=== PATIENT | female | born 1970 | race Caucasian/White ===

== ENCOUNTER 2018-04-25 09:48 | Observation (INO) ==
[2018-04-25] MEDS ORDERED: 0.9 % Sodium Chloride 1,000 ML IVC ONE (10:18)
[2018-04-25] MEDS ORDERED: *HR* FentaNYL (PF) 100 MCG/2 ML VIAL IVP ONE (10:18)
[2018-04-25] MEDS ORDERED: *HR* Promethazine 25 MG/ML VIAL IVP ONE (10:18)
--- NOTE | 2018-04-25 10:29 | Emergency Department Note ---
Disposition Clinical Impression: Abdominal pain Qualifiers: Abdominal location: left upper quadrant Qualified Code(s): R10.12 - Left upper quadrant pain Nausea and vomiting Qualifiers: Vomiting type: unspecified Vomiting Intractability: intractable Qualified Code(s): R11.2 - Nausea with vomiting, unspecified Disposition: Admitted As Inpatient Condition: Fair Abdominal Pain HPI - General Stated Complaint: n.v.d Time Seen by Provider: 04/25/18 09:51 Source: patient, family Mode of arrival: private vehicle Limitations: no limitations Nursing Notes Reviewed: Yes Vital Signs Reviewed: Yes - History of Present Illness Pt Subjective Complaint: abdominal pain Onset (ago): day(s) Consistency: constant Location: LUQ, epigastric Pain Severity: severe Pain Scale: 10 Quality: stabbing, sharp Radiation: none Migration to: no migration Improves with: nothing Worsens with: vomiting Context: history of similar episodes Associated symptoms: Reports: nausea, vomiting. Denies: diarrhea, fever, chills, constipation, dysuria, hematemesis, hematochezia, melena, hematuria, anorexia, syncope Treatments prior to arrival: none - Related Data LMP (females 10-50): unknown Home Medications Medication Instructions Recorded Confirmed Losartan Potassium 50 mg PO DAILY 04/25/18 04/25/18 Omeprazole [PriLOSEC] 40 mg PO DAILY 04/25/18 04/25/18 Ondansetron [Zofran] 8 mg PO Q8H PRN 04/25/18 04/25/18 Sucralfate [Carafate] 1 gm PO BID 04/25/18 04/25/18 Allergies Allergy/AdvReac Type Severity Reaction Status Date / Time NSAIDS (Non-Steroidal AdvReac Nausea Verified 04/23/18 19:44 Anti-Inflamma prednisone AdvReac See Verified 04/23/18 19:44 Comments All systems ED: reviewed and negative except as stated. Review of Systems: As Per HPI Constitutional: Denies: fever, chills, weakness Eyes: Denies: eye pain, eye discharge, vision change ENT ED: Denies: ear pain, throat pain, congestion, dysphagia Cardiovascular: Reports: as per HPI. Denies: chest pain, palpitations, dyspnea on exertion, orthopnea, syncope Respiratory: Denies: cough, dyspnea, wheezes Gastrointestinal: Reports: as per HPI, abdominal pain, nausea, vomiting. Denies: diarrhea, constipation, hematemesis, melena, hematochezia Genitourinary: Denies: urgency, dysuria, frequency, hematuria, discharge Musculoskeletal: Denies: back pain, neck pain, joint swelling, arthralgia Integumentary: Denies: rash Neurological: Denies: headache, weakness, numbness, paresthesias Hematological/Lymphatic: Denies: easy bleeding, easy bruising, lymphadenopathy Abdominal Pain PMH - Past Medical History Medical history: Reports: hypertension Female Surgical History: Reports: Psychiatric history: Reports: anxiety, depression - Social History Smoking status: Never smoker Alcohol use: Reports: none Drug use: Reports: none Physical Exam - General Limitations: no limitations General appearance: alert, anxious, in distress - Head Head exam: atraumatic, normocephalic, normal inspection - Eye Eye exam: Present: normal appearance. Absent: PERRL, scleral icterus, conjunctival injection, periorbital swelling - ENT ENT exam: mucous membranes moist - Neck Neck exam: Present: normal inspection, full ROM, trachea midline. Absent: tenderness, meningismus, lymphadenopathy - Chest Chest inspection: Present: normal inspection, symmetric chest wall rise - Respiratory Respiratory exam: Present: normal lung sounds bilaterally. Absent: respiratory distress, wheezes, stridor, accessory muscle use - Cardiovascular Cardiovascular exam: Present: regular rate, normal rhythm, normal heart sounds - Abdominal Exam Abdominal exam: Present: soft, tenderness, normal bowel sounds. Absent: distention, guarding, rebound, rigidity, diminished bowel sounds, hyperactive bowel sounds, mass, pulsatile mass Abdominal tenderness: Present: epigastrium, moderate - Extremities Exam Extremities exam: Present: normal inspection, full ROM, normal capillary refill. Absent: tenderness - Neurological Exam Neurological exam: Present: alert, oriented X3, CN II-XII intact, reflexes normal - Psychiatric Psychiatric exam: Present: normal affect, anxious - Skin Skin exam: Present: warm, dry, intact, normal color Course Course Narrative: Patient returns to the ED today for eval of continued LUQ pain, nausea and vomiting. She was seen here two days ago and had labs, EKG and CT done. All were normal except for leukocytosis. She was feeling better and was able to go home. Once home however, the pain and nausea returned. She was unable to keep any meds or fluids down, so her family brought her back this AM. She denies anything new or different. She has actually had these issues since January and has seen her PCP for them several times. She has been taking Carafate, prevecid and zofran with sporadic relief. She has not had an EGD but states that she was diagnosed with an ulcer. She is not sure of the location of the ulcer. She denies hx of melena or other bowel issues, however she did have one isolated episode of watery diarrhea on the just [employer]. On exam patient initially was prone on the bed with knees drawn up. She was sobbing and holding her upper abdomen. She complained of a burning pain and nausea. She responded well to pain and nausea meds and was able to give a full hx. She was cooperative with exam. She has tenderness in the LUQ predominantly, and some milder tenderness in the epigastrium. Normal bowel sounds, no mass, no guarding. No peritoneal signs. Labs ordered. Labs are essentially normal. WBC count improved. EKG normal. - Reevaluation(s) Reevaluation #1: pain is improved. Still nauseated. Patient and her family are concerned that if she goes home they will have to bring her back again - for the third time. Time: 12:04 Vital Signs Temperature 97.6 F 04/25/18 09:54 Pulse Rate 83 04/25/18 09:54 Respiratory Rate 20 04/25/18 09:54 Blood Pressure 118/55 04/25/18 09:54 O2 Sat by Pulse Oximetry 100 04/25/18 09:54 Temperature 97.6 F 04/25/18 09:54 Pulse Rate 83 04/25/18 09:54 Respiratory Rate 20 04/25/18 09:54 Blood Pressure 118/55 04/25/18 09:54 O2 Sat by Pulse Oximetry 100 04/25/18 09:54 Oxygen Delivery Oxygen Delivery Room Air Abdominal Pain - Medical Records Medical records reviewed: Yes I reviewed the patient's medical records. - Lab Data Lab results reviewed: Yes I reviewed the patient's lab results. Lab results narrative: Laboratory Last Values WBC 12.1 K/mcL (4.3-11.1) H 04/25/18 10:30 RBC 4.99 M/mcL (3.82-4.97) H 04/25/18 10:30 Hgb 15.2 g/dL (11.5-15.4) 04/25/18 10:30 Hct 44.1 % (35.3-44.9) 04/25/18 10:30 MCV 88.4 fL (83.0-100.0) 04/25/18 10:30 MCH 30.5 pg (28.0-33.3) 04/25/18 10:30 MCHC 34.5 g/dL (31.6-35.5) 04/25/18 10:30 RDW 12.0 % (11.5-14.5) 04/25/18 10:30 Plt Count 228 K/mcL (140-400) 04/25/18 10:30 MPV 10.8 fL (9.4-12.4) 04/25/18 10:30 Immature Gran % 0.3 % (0-4) 04/25/18 10:30 Seg Neutrophils % 79.5 % 04/25/18 10:30 Lymphocytes % 16.1 % 04/25/18 10:30 Monocytes % 3.8 % 04/25/18 10:30 Eosinophils % 0.1 % 04/25/18 10:30 Basophils % 0.2 % 04/25/18 10:30 Neutrophils # 9.6 K/mcL (1.6-8.9) H 04/25/18 10:30 Lymphocytes # 2.0 K/mcL (0.6-4.6) 04/25/18 10:30 Monocytes # 0.5 K/mcL (0.0-1.3) 04/25/18 10:30 Eosinophils # 0.0 K/mcL (0.0-0.6) 04/25/18 10:30 Basophils # 0.0 K/mcL (0.0-0.2) 04/25/18 10:30 Sodium 141 mEq/L (136-145) 04/25/18 10:30 Potassium 3.8 mEq/L (3.5-5.1) 04/25/18 10:30 Chloride 104 mEq/L (98-107) 04/25/18 10:30 Carbon Dioxide 20 mEq/L (23-29) L 04/25/18 10:30 BUN 13 mg/dL (6-20) 04/25/18 10:30 Creatinine 0.94 mg/dL (0.60-1.20) 04/25/18 10:30 Est GFR ( Amer) > 60 (> 60) 04/25/18 10:30 Est GFR (Non-Af Amer) > 60 (> 60) 04/25/18 10:30 BUN/Creatinine Ratio 14 (6-26) 04/25/18 10:30 Glucose 99 mg/dL (70-105) 04/25/18 10:30 Calculated Osmolality 292 (280-300) 04/25/18 10:30 Calcium 10.8 mg/dL (8.6-10.3) H 04/25/18 10:30 Total Bilirubin 0.7 mg/dL (0.3-1.0) 04/25/18 10:30 Direct Bilirubin 0.1 mg/dL (0.0-0.2) 04/25/18 10:30 Indirect Bilirubin 0.6 mg/dL (0.0-1.2) 04/25/18 10:30 AST 15 Units/L (13-39) 04/25/18 10:30 ALT 12 Units/L (7-52) 04/25/18 10:30 Alkaline Phosphatase 67 Units/L (34-104) 04/25/18 10:30 Serum Total Protein 8.0 g/dL (6.4-8.9) 04/25/18 10:30 Albumin 4.9 g/dL (3.5-5.7) 04/25/18 10:30 Globulin 3.1 g/dL (2.4-3.5) 04/25/18 10:30 Albumin/Globulin Ratio 1.6 (1.1-2.2) 04/25/18 10:30 Lipase 48 Units/L (11-82) 04/25/18 10:30 Urine Color Yellow (Yellow) 04/25/18 10:18 Urine Clarity Clear (Clear) 04/25/18 10:18 Urine pH 7.0 pH Units (5.0-8.0) 04/25/18 10:18 Ur Specific [place] 1.009 (1.010-1.025) L 04/25/18 10:18 Urine Protein Negative mg/dL (Neg-Trace) 04/25/18 10:18 Urine Glucose (UA) Normal mg/dL (Normal) 04/25/18 10:18 Urine Ketones Negative mg/dL (Negative) 04/25/18 10:18 Urine Blood Small (Negative) H 04/25/18 10:18 Urine Nitrite Negative (Negative) 04/25/18 10:18 Urine Bilirubin Negative (Negative) 04/25/18 10:18 Urine Urobilinogen Normal mg/dL (Normal) 04/25/18 10:18 Ur Leukocyte Esterase Small (Negative) H 04/25/18 10:18 Urine Microscopic RBC 0-3 per hpf (0-3) 04/25/18 10:18 Urine Microscopic WBC 3-5 per hpf (0-3) H 04/25/18 10:18 Ur Squamous Epith Cells Many per lpf (None-Few) H 04/25/18 10:18 Urine Bacteria Few per hpf (None-Few) 04/25/18 10:18 Hyaline Casts None Seen per lpf (None-Few) 04/25/18 10:18 Ur Culture Indicated? NO. (NO) A 04/25/18 10:18 Urine Test Negative (Negative) 04/25/18 10:19 Result diagrams: 04/25/18 10:30 04/25/18 10:30 Lab Results 04/25/18 04/25/18 04/25/18 Range/Units 10:18 10:19 10:30 WBC 12.1 H (4.3-11.1) K/mcL RBC 4.99 H (3.82-4.97) M/mcL Hgb 15.2 (11.5-15.4) g/dL Hct 44.1 (35.3-44.9) % MCV 88.4 (83.0-100.0) fL MCH 30.5 (28.0-33.3) pg MCHC 34.5 (31.6-35.5) g/dL RDW 12.0 (11.5-14.5) % Plt Count 228 (140-400) K/mcL MPV 10.8 (9.4-12.4) fL Immature Gran % 0.3 (0-4) % Seg Neutrophils % 79.5 % Lymphocytes % 16.1 % Monocytes % 3.8 % Eosinophils % 0.1 % Basophils % 0.2 % Neutrophils # 9.6 H (1.6-8.9) K/mcL Lymphocytes # 2.0 (0.6-4.6) K/mcL Monocytes # 0.5 (0.0-1.3) K/mcL Eosinophils # 0.0 (0.0-0.6) K/mcL Basophils # 0.0 (0.0-0.2) K/mcL Sodium (136-145) mEq/L Potassium (3.5-5.1) mEq/L Chloride (98-107) mEq/L Carbon Dioxide (23-29) mEq/L BUN (6-20) mg/dL Creatinine (0.60-1.20) mg/dL Est GFR ( Amer) (> 60) Est GFR (Non-Af Amer) (> 60) BUN/Creatinine Ratio (6-26) Glucose (70-105) mg/dL Calculated Osmolality (280-300) Calcium (8.6-10.3) mg/dL Total Bilirubin (0.3-1.0) mg/dL Direct Bilirubin (0.0-0.2) mg/dL Indirect Bilirubin (0.0-1.2) mg/dL AST (13-39) Units/L ALT (7-52) Units/L Alkaline Phosphatase (34-104) Units/L Serum Total Protein (6.4-8.9) g/dL Albumin (3.5-5.7) g/dL Globulin (2.4-3.5) g/dL Albumin/Globulin Ratio (1.1-2.2) Lipase (11-82) Units/L Urine Color Yellow (Yellow) Urine Clarity Clear (Clear) Urine pH 7.0 (5.0-8.0) pH Units Ur Specific [place] 1.009 L (1.010-1.025) Urine Protein Negative (Neg-Trace) mg/dL Urine Glucose (UA) Normal (Normal) mg/dL Urine Ketones Negative (Negative) mg/dL Urine Blood Small H (Negative) Urine Nitrite Negative (Negative) Urine Bilirubin Negative (Negative) Urine Urobilinogen Normal (Normal) mg/dL Ur Leukocyte Esterase Small H (Negative) Urine Microscopic RBC 0-3 (0-3) per hpf Urine Microscopic WBC 3-5 H (0-3) per hpf Ur Squamous Epith Cells Many H (None-Few) per lpf Urine Bacteria Few (None-Few) per hpf Hyaline Casts None Seen (None-Few) per lpf Ur Culture Indicated? NO. A (NO) Urine Test Negative (Negative) 04/25/18 Range/Units 10:30 WBC (4.3-11.1) K/mcL RBC (3.82-4.97) M/mcL Hgb (11.5-15.4) g/dL Hct (35.3-44.9) % MCV (83.0-100.0) fL MCH (28.0-33.3) pg MCHC (31.6-35.5) g/dL RDW (11.5-14.5) % Plt Count (140-400) K/mcL MPV (9.4-12.4) fL Immature Gran % (0-4) % Seg Neutrophils % % Lymphocytes % % Monocytes % % Eosinophils % % Basophils % % Neutrophils # (1.6-8.9) K/mcL Lymphocytes # (0.6-4.6) K/mcL Monocytes # (0.0-1.3) K/mcL Eosinophils # (0.0-0.6) K/mcL Basophils # (0.0-0.2) K/mcL Sodium 141 (136-145) mEq/L Potassium 3.8 (3.5-5.1) mEq/L Chloride 104 (98-107) mEq/L Carbon Dioxide 20 L (23-29) mEq/L BUN 13 (6-20) mg/dL Creatinine 0.94 (0.60-1.20) mg/dL Est GFR ( Amer) > 60 (> 60) Est GFR (Non-Af Amer) > 60 (> 60) BUN/Creatinine Ratio 14 (6-26) Glucose 99 (70-105) mg/dL Calculated Osmolality 292 (280-300) Calcium 10.8 H (8.6-10.3) mg/dL Total Bilirubin 0.7 (0.3-1.0) mg/dL Direct Bilirubin 0.1 (0.0-0.2) mg/dL Indirect Bilirubin 0.6 (0.0-1.2) mg/dL AST 15 (13-39) Units/L ALT 12 (7-52) Units/L Alkaline Phosphatase 67 (34-104) Units/L Serum Total Protein 8.0 (6.4-8.9) g/dL Albumin 4.9 (3.5-5.7) g/dL Globulin 3.1 (2.4-3.5) g/dL Albumin/Globulin Ratio 1.6 (1.1-2.2) Lipase 48 (11-82) Units/L Urine Color (Yellow) Urine Clarity (Clear) Urine pH (5.0-8.0) pH Units Ur Specific [place] (1.010-1.025) Urine Protein (Neg-Trace) mg/dL Urine Glucose (UA) (Normal) mg/dL Urine Ketones (Negative) mg/dL Urine Blood (Negative) Urine Nitrite (Negative) Urine Bilirubin (Negative) Urine Urobilinogen (Normal) mg/dL Ur Leukocyte Esterase (Negative) Urine Microscopic RBC (0-3) per hpf Urine Microscopic WBC (0-3) per hpf Ur Squamous Epith Cells (None-Few) per lpf Urine Bacteria (None-Few) per hpf Hyaline Casts (None-Few) per lpf Ur Culture Indicated? (NO) Urine Test (Negative) - EKG Data EKG attestation: Yes I reviewed and interpreted this EKG. EKG shows normal: sinus rhythm Rate: normal Rhythm: NSR QRS morphology: poor R-wave progression When compared to previous EKG there are: no significant changes Interpretation: unchanged when compared to prior tracing (date)
[2018-04-25 10:48] LABS: Basophils % 0.2 %; Eosinophils % 0.1 %; Hematocrit 44.1 % (35.3-44.9); Hemoglobin 15.2 g/dL (11.5-15.4); Immature Granulocytes % 0.3 % (0-4); Lymphocytes % 16.1 %; Mean Corpuscular HGB Conc 34.5 g/dL (31.6-35.5); Mean Corpuscular Hemoglobin 30.5 pg (28.0-33.3); Mean Corpuscular Volume 88.4 fL (83.0-100.0); Mean Platelet Volume 10.8 fL (9.4-12.4); Monocytes # 0.5 K/mcL (0.0-1.3); Monocytes % 3.8 %; Neutrophils # 9.6 K/mcL (1.6-8.9); Platelet Count 228 K/mcL (140-400); Red Blood Count 4.99 M/mcL (3.82-4.97); Segmented Neutrophils % 79.5 %
[2018-04-25 11:08] LABS: Alanine Aminotransferase 12 Units/L (7-52); Albumin 4.9 g/dL (3.5-5.7); Albumin/Globulin Ratio 1.6 (1.1-2.2); Alkaline Phosphatase 67 Units/L (34-104); Aspartate Amino Transferase 15 Units/L (13-39); BUN/Creatinine Ratio 14 (6-26); Bilirubin,Direct 0.1 mg/dL (0.0-0.2); Bilirubin,Indirect 0.6 mg/dL (0.0-1.2); Bilirubin,Total 0.7 mg/dL (0.3-1.0); Blood Urea Nitrogen 13 mg/dL (6-20); Calcium 10.8 mg/dL (8.6-10.3); Carbon Dioxide 20 mEq/L (23-29); Chloride 104 mEq/L (98-107); Globulin 3.1 g/dL (2.4-3.5); Glucose 99 mg/dL (70-105); Lipase 48 Units/L (11-82); Osmolality,Calculated 292 (280-300); Potassium 3.8 mEq/L (3.5-5.1); Sodium 141 mEq/L (136-145); eGFR For Non-African Americans > 60 (> 60)
[2018-04-25 11:21] LABS: Bilirubin,Urine Negative (Negative); Blood,Urine Small (Negative); Clarity,Urine Clear (Clear); Color,Urine Yellow (Yellow); Glucose,Urine (UA) Normal (Normal); Ketones,Urine Negative (Negative); Leukocyte Esterase,Urine Small (Negative); Nitrite,Urine Negative (Negative); Protein,Urine Negative (Neg-Trace); Specific Gravity,Urine 1.009 (1.010-1.025); Urobilinogen,Urine Normal (Normal)
[2018-04-25 11:24] LABS: Bacteria,Urine Few per hpf (None-Few); Hyaline Casts,Urine None Seen per lpf (None-Few); RBC,Urine 0-3 per hpf (0-3); Squamous Epithelial Cell,Urine Many per lpf (None-Few)
[2018-04-25] MEDS ORDERED: Promethazine 25 MG in 0.9 % Sodium Chloride 50 ML IVPB ONE (11:59)
[2018-04-25] MEDS ORDERED: Pantoprazole 40 MG VIAL IVP ONE (12:02)
--- NOTE | 2018-04-25 12:11 | Emergency Department Note ---
Disposition Clinical Impression: Abdominal pain, Nausea and vomiting Disposition: Admitted As Inpatient Condition: Fair General Adult HPI - General Chief complaint: ED Nausea/Vomiting/Diarrhea Stated complaint: n.v.d Time Seen by Provider: 04/25/18 09:51 Source: patient, family Mode of arrival: private vehicle Limitations: no limitations Nursing Notes Reviewed: Yes Vital Signs Reviewed: Yes - History of Present Illness Pain Scale: 10 - Related Data Home Medications Medication Instructions Recorded Confirmed Losartan Potassium 50 mg PO DAILY 04/25/18 04/25/18 RX: Omeprazole [PriLOSEC] 40 mg PO DAILY 04/25/18 04/25/18 RX: Ondansetron [Zofran] 8 mg PO Q8H PRN 04/25/18 04/25/18 RX: Sucralfate [Carafate] 1 gm PO BID 04/25/18 04/25/18 Allergies Allergy/AdvReac Type Severity Reaction Status Date / Time NSAIDS (Non-Steroidal AdvReac Nausea Verified 04/23/18 19:44 Anti-Inflamma prednisone AdvReac See Verified 04/23/18 19:44 Comments Constitutional: Denies: fever, chills, weakness Eyes: Denies: eye pain, eye discharge, vision change ENT ED: Denies: ear pain, throat pain, congestion, dysphagia Cardiovascular: Reports: as per HPI. Denies: chest pain, palpitations, dyspnea on exertion, orthopnea, syncope Respiratory: Denies: cough, dyspnea, wheezes Gastrointestinal: Reports: as per HPI, abdominal pain, nausea, vomiting. Denies: diarrhea, constipation, hematemesis, melena, hematochezia Genitourinary: Denies: urgency, dysuria, frequency, hematuria, discharge Musculoskeletal: Denies: back pain, neck pain, joint swelling, arthralgia Integumentary: Denies: rash Neurological: Denies: headache, weakness, numbness, paresthesias Hematological/Lymphatic: Denies: easy bleeding, easy bruising, lymphadenopathy Past Medical History - Past Medical History Medical history: Reports: hypertension Psychiatric history: Reports: anxiety, depression - Social History Smoking Status: Never smoker Smokeless Tobacco Status: No Alcohol use: Reports: none Drug use: Reports: none Physical Exam - General Limitations: no limitations General appearance: alert, anxious, in distress Course Vital Signs Temperature 97.6 F 11/26/18 09:54 Pulse Rate 83 04/25/18 09:54 Respiratory Rate 20 04/25/18 09:54 Blood Pressure 118/55 04/25/18 09:54 O2 Sat by Pulse Oximetry 100 04/25/18 09:54 Temperature 98.9 F 04/25/18 15:12 Pulse Rate 60 04/25/18 15:12 Respiratory Rate 16 04/25/18 15:12 Blood Pressure 138/84 04/25/18 15:12 O2 Sat by Pulse Oximetry 96 04/25/18 15:12 Oxygen Delivery Oxygen Delivery Room Air Medical Decision Making - Lab Data Result diagrams: 04/25/18 10:30 04/25/18 10:30 Lab Results 04/25/18 04/25/18 04/25/18 Range/Units 10:18 10:19 10:30 WBC 12.1 H (4.3-11.1) K/mcL RBC 4.99 H (3.82-4.97) M/mcL Hgb 15.2 (11.5-15.4) g/dL Hct 44.1 (35.3-44.9) % MCV 88.4 (83.0-100.0) fL MCH 30.5 (28.0-33.3) pg MCHC 34.5 (31.6-35.5) g/dL RDW 12.0 (11.5-14.5) % Plt Count 228 (140-400) K/mcL MPV 10.8 (9.4-12.4) fL Immature Gran % 0.3 (0-4) % Seg Neutrophils % 79.5 % Lymphocytes % 16.1 % Monocytes % 3.8 % Eosinophils % 0.1 % Basophils % 0.2 % Neutrophils # 9.6 H (1.6-8.9) K/mcL Lymphocytes # 2.0 (0.6-4.6) K/mcL Monocytes # 0.5 (0.0-1.3) K/mcL Eosinophils # 0.0 (0.0-0.6) K/mcL Basophils # 0.0 (0.0-0.2) K/mcL Sodium (136-145) mEq/L Potassium (3.5-5.1) mEq/L Chloride (98-107) mEq/L Carbon Dioxide (23-29) mEq/L BUN (6-20) mg/dL Creatinine (0.60-1.20) mg/dL Est GFR ( Amer) (> 60) Est GFR (Non-Af Amer) (> 60) BUN/Creatinine Ratio (6-26) Glucose (70-105) mg/dL Calculated Osmolality (280-300) Calcium (8.6-10.3) mg/dL Total Bilirubin (0.3-1.0) mg/dL Direct Bilirubin (0.0-0.2) mg/dL Indirect Bilirubin (0.0-1.2) mg/dL AST (13-39) Units/L ALT (7-52) Units/L Alkaline Phosphatase (34-104) Units/L Serum Total Protein (6.4-8.9) g/dL Albumin (3.5-5.7) g/dL Globulin (2.4-3.5) g/dL Albumin/Globulin Ratio (1.1-2.2) Lipase (11-82) Units/L Urine Color Yellow (Yellow) Urine Clarity Clear (Clear) Urine pH 7.0 (5.0-8.0) pH Units Ur Specific [place] 1.009 L (1.010-1.025) Urine Protein Negative (Neg-Trace) mg/dL Urine Glucose (UA) Normal (Normal) mg/dL Urine Ketones Negative (Negative) mg/dL Urine Blood Small H (Negative) Urine Nitrite Negative (Negative) Urine Bilirubin Negative (Negative) Urine Urobilinogen Normal (Normal) mg/dL Ur Leukocyte Esterase Small H (Negative) Urine Microscopic RBC 0-3 (0-3) per hpf Urine Microscopic WBC 3-5 H (0-3) per hpf Ur Squamous Epith Cells Many H (None-Few) per lpf Urine Bacteria Few (None-Few) per hpf Hyaline Casts None Seen (None-Few) per lpf Ur Culture Indicated? NO. A (NO) Urine Test Negative (Negative) 04/25/18 Range/Units 10:30 WBC (4.3-11.1) K/mcL RBC (3.82-4.97) M/mcL Hgb (11.5-15.4) g/dL Hct (35.3-44.9) % MCV (83.0-100.0) fL MCH (28.0-33.3) pg MCHC (31.6-35.5) g/dL RDW (11.5-14.5) % Plt Count (140-400) K/mcL MPV (9.4-12.4) fL Immature Gran % (0-4) % Seg Neutrophils % % Lymphocytes % % Monocytes % % Eosinophils % % Basophils % % Neutrophils # (1.6-8.9) K/mcL Lymphocytes # (0.6-4.6) K/mcL Monocytes # (0.0-1.3) K/mcL Eosinophils # (0.0-0.6) K/mcL Basophils # (0.0-0.2) K/mcL Sodium 141 (136-145) mEq/L Potassium 3.8 (3.5-5.1) mEq/L Chloride 104 (98-107) mEq/L Carbon Dioxide 20 L (23-29) mEq/L BUN 13 (6-20) mg/dL Creatinine 0.94 (0.60-1.20) mg/dL Est GFR ( Amer) > 60 (> 60) Est GFR (Non-Af Amer) > 60 (> 60) BUN/Creatinine Ratio 14 (6-26) Glucose 99 (70-105) mg/dL Calculated Osmolality 292 (280-300) Calcium 10.8 H (8.6-10.3) mg/dL Total Bilirubin 0.7 (0.3-1.0) mg/dL Direct Bilirubin 0.1 (0.0-0.2) mg/dL Indirect Bilirubin 0.6 (0.0-1.2) mg/dL AST 15 (13-39) Units/L ALT 12 (7-52) Units/L Alkaline Phosphatase 67 (34-104) Units/L Serum Total Protein 8.0 (6.4-8.9) g/dL Albumin 4.9 (3.5-5.7) g/dL Globulin 3.1 (2.4-3.5) g/dL Albumin/Globulin Ratio 1.6 (1.1-2.2) Lipase 48 (11-82) Units/L Urine Color (Yellow) Urine Clarity (Clear) Urine pH (5.0-8.0) pH Units Ur Specific [place] (1.010-1.025) Urine Protein (Neg-Trace) mg/dL Urine Glucose (UA) (Normal) mg/dL Urine Ketones (Negative) mg/dL Urine Blood (Negative) Urine Nitrite (Negative) Urine Bilirubin (Negative) Urine Urobilinogen (Normal) mg/dL Ur Leukocyte Esterase (Negative) Urine Microscopic RBC (0-3) per hpf Urine Microscopic WBC (0-3) per hpf Ur Squamous Epith Cells (None-Few) per lpf Urine Bacteria (None-Few) per hpf Hyaline Casts (None-Few) per lpf Ur Culture Indicated? (NO) Urine Test (Negative) Attestation Statement - Attestation Attestation: This documentation is done with the assistance of Dragon dictation. Despite efforts made to ensure accuracy, there may be inaccuracies in field services analyst or spelling and typographical errors. I have personally performed a face to face evaluation on this patient. I have reviewed and agree with the care plan. History and Exam by me shows: Patient seen and evaluated by Ellen Ibrahim. Patient's had nausea and vomiting and diarrhea is unable to keep anything down was seen yesterday had CAT scan and lab workup which was negative. She went home and continued to vomit so parents today wanting her admitted seems a this could be ulcer pain she has looks pain- free now but still has nausea. Parents would like her admitted to the hospital. We have talked about possibly getting her follow up with GI as outpatient and they will think that will work so we will talk to hospice about her not vomiting now. We will speak to hospitalist and try to admit, if they will not, we will talk with GI.
[2018-04-25] MEDS ORDERED: Naloxone 0.4 MG/ML INJ IVP PRN (14:00)
[2018-04-25] MEDS ORDERED: Ondansetron ODT 4 MG TAB.RAPDIS SL PRN (14:00)
[2018-04-25] MEDS ORDERED: Ondansetron 4 MG/2 ML VIAL IVP PRN (14:00)
--- NOTE | 2018-04-25 15:33 | Internal Med History&Physical ---
Date of Encounter: 04/25/18 Time of Encounter: 15:29 Internal Medicine - H&P: HPI Chief complaint: N/V Admitted From: Emergency Dept Plans for Post Hospital Care: Home History of present illness: Ms. Arias is a 48 year old female past medical history of hypertension hypothyroid H pylori-according to the patient she has been experiencing nausea and vomiting for the past 5 days has not been able to eat or drink. Denies any fevers or chills. Denies any diarrhea or loose stool. Denies any hematemesis hematochezia and melena. Also has left upper quadrant pain which is constant pain is worse when she eats. She was seen in January by primary care provider was tested for H pylori and was treated with antibiotics and placed on Prilosec and Carafate. Patient denies any history of EGD or colonoscopy in the past. She does admit to a 15 pound weight loss over the past 6 months due to poor appetite. He presented to [facility] ED with the above complaints she was treated yesterday and was sent home however symptoms did not improve. Lab work did show slightly elevated white count [address] of abdomen performed yesterday with no acute process. GI has been consulted. Currently she is hemodynamically stable at this time does not appear to be in any distress Past Med Surg Social Fam HX - Past Medical History Medical history: hypertension Additional medical history: pancreatitis Psychiatric history: anxiety, depression - Social History Smoking Status: Never smoker Smokeless Tobacco Status: No Alcohol use: none Drug use: none - Family History Mother Living Status: Still Living Hx Family Cardiac Disorders: Yes (Hypertension) Hx Family Endocrine Disorder: Yes (Diabetes) Father Living Status: Still Living Hx Family Cardiac Disorders: Yes (Hypertension) Internal Medicine - H&P: Meds Losartan Potassium 50 mg PO DAILY 04/25/18 [History] Omeprazole [PriLOSEC] 40 mg PO DAILY 04/25/18 [History] Ondansetron [Zofran] 8 mg PO Q8H PRN 04/25/18 [History] Sucralfate [Carafate] 1 gm PO BID 04/25/18 [History] Allergy/AdvReac Type Severity Reaction Status Date / Time NSAIDS (Non-Steroidal AdvReac Nausea Verified 04/23/18 19:44 Anti-Inflamma prednisone AdvReac See Verified 04/23/18 19:44 Comments All Systems PM: A 10-system review of systems was performed and is negative for pertinent findings except as documented above in the HPI. - Constitutional Constitutional: anorexia, weight loss, no chills, no fever(s), no night sweats - EENT Eyes: no change in vision, no discharge, no pain, no photophobia Ears: no ear discharge, no ear pain, no tinnitus Nose, mouth and throat: no dysphagia, no nasal discharge, no neck pain, no sore throat - Cardiovascular Cardiovascular ROS IM: no chest pain, no diaphoresis, no dyspnea, no light headedness, no palpitations, no syncope - Respiratory Respiratory: no cough, no dyspnea, no wheezing, no excessive phlegm production - Gastrointestinal Gastrointestinal: abdominal pain, cramping, nausea, vomiting - Genitourinary Genitourinary: no change in urinary stream, no dysuria, no flank pain, no hematuria - Musculoskeletal Musculoskeletal ROS IM: no numbness, no tingling - Integumentary Integumentary IM: no rash, no unusual bruising - Neurological Neurological ROS: no confusion, no convulsions, no focal weakness, no numbness, no tingling, no tremor(s) - Hematologic/Lymphatic Hematologic/Lymphatic: no easy bruising - Constitutional Vitals: Temp Pulse Resp BP Pulse Ox 98.9 F 60 16 138/84 96 04/25/18 15:12 04/25/18 15:12 04/25/18 15:12 04/25/18 15:12 04/25/18 15:12 General appearance: Present: A&O X 3 Exam: . - Head Head exam: Present: atraumatic, normocephalic - Eye Eye exam: Present: PERRL, conjuntiva pink, sclera anicteric Pupils: Present: PERRL - Neck Neck exam general surgery: Present: supple, trachea midline. Absent: lymphadenopathy - Respiratory Respiratory exam: Present: CTAB. Absent: accessory muscle use, rales, rhonchi, wheezes - Cardiovascular Cardiovascular exam: Present: RRR, +S1, +S2. Absent: diastolic murmur, gallop, rubs, systolic murmur - GI/Abdominal GI/Abdominal exam: Present: normal bowel sounds, soft, tenderness, no peritoneal signs. Absent: distended - Extremities Exam Extremities exam: Present: warm, radial pulses palpable and symmetrical. Absent: calf tenderness, cyanotic, pedal edema - Neurological Exam Neurological exam: Present: CN II-XII intact, oriented X3, no focal deficits. Absent: pronater drift, facial droop, speech deficit - Skin Skin exam: Present: dry, intact Internal Med - H&P Results - Labs CBC & Chem 7: 04/25/18 10:30 04/25/18 10:30 Labs: Short CBC 04/25/18 Range/Units 10:30 WBC 12.1 H (4.3-11.1) K/mcL Hgb 15.2 (11.5-15.4) g/dL Hct 44.1 (35.3-44.9) % Plt Count 228 (140-400) K/mcL Neutrophils # 9.6 H (1.6-8.9) K/mcL BMP 04/25/18 10:30 Sodium 141 Potassium 3.8 Chloride 104 Carbon Dioxide 20 L BUN 13 Creatinine 0.94 Glucose 99 Calcium 10.8 H Liver Function 04/25/18 Range/Units 10:30 Total Bilirubin 0.7 (0.3-1.0) mg/dL Direct Bilirubin 0.1 (0.0-0.2) mg/dL AST 15 (13-39) Units/L ALT 12 (7-52) Units/L Alkaline Phosphatase 67 (34-104) Units/L Albumin 4.9 (3.5-5.7) g/dL Urine 04/25/18 Range/Units 10:18 Urine Color Yellow (Yellow) Urine Clarity Clear (Clear) Urine pH 7.0 (5.0-8.0) pH Units Ur Specific Lottie 1.009 L (1.010-1.025) Urine Protein Negative (Neg-Trace) mg/dL Urine Glucose (UA) Normal (Normal) mg/dL - Assessment and plan (1) Abdominal pain Current Visit: Yes Status: Acute Assessment and plan: 1 patient has been experiencing left upper quadrant pain which is sharp and constant aggravated with eating. Patient states that she was tested for H. pylori in January and was positive we will continue with Protonix as well as Carafate We will give IV fluids due to poor oral intake Consult GI Nothing by mouth for possible EGD in a.m. Oxycodone sublingual for pain Zofran as needed for nausea Upon review of the records it appears the patient has had history of drug use however patient denies any recent drug use. She was taking Suboxone 2016 we will check a tox screen to make sure she is not withdrawing from drugs Qualifiers: Abdominal location: left upper quadrant Qualified Code(s): R10.12 - Left upper quadrant pain (2) Nausea and vomiting Current Visit: Yes Status: Acute Assessment and plan: Patient states she has been experiencing nausea and vomiting for proximal 5 days. Has not been able to tolerate any oral intake. She does not appear to be dehydrated this time lab work is unremarkable. Review of records it appears patient does have a history of drug use -or she reported does show patient was taking Suboxone 2016 patient denies any current drug use. We will check a tox screen to ensure she is not withdrawing Patient states she was tested positive for H. pylori in January and that she does have a ulcer. We will continue with Protonix as well as Carafate continue IV fluids continue with Zofran Consult GI for possible EGD keep patient nothing by mouth at this time Qualifiers: Vomiting type: unspecified Vomiting Intractability: intractable Qualified Code(s): R11.2 - Nausea with vomiting, unspecified (3) HTN (hypertension) Current Visit: Yes Status: Acute Assessment and plan: Currently controlled continue home medication Qualifiers: Hypertension type: essential hypertension Qualified Code(s): I10 - Essential (primary) hypertension (4) DVT prophylaxis Current Visit: Yes Status: Acute Assessment and plan: scd - Time Spent With Patient Total time spent is greater than 50% in coordination of care (as documented) at patient's floor/unit and/or counseling patient:
[2018-04-25] MEDS: 0.9 % Sodium Chloride 1,000 ML IVC SCH (15:56)
[2018-04-25] MEDS: OXYCODONE Oral CONC 10 MG/0.5 ML ORAL.SYG SL PRN ×2 (15:56→20:08)
[2018-04-25 15:57] LABS: Amphetamine Screen,Urine Negative ng/mL (Cutoff=1000); Barbiturate Screen,Urine Negative ng/mL (Cutoff=200); Benzodiazepines Screen,Urine Positive ng/mL (Cutoff=200); Cannabinoid Screen,Urine Positive ng/mL (Cutoff = 50); Cocaine Screen,Urine Negative ng/mL (Cutoff= 300); Opiate Screen,Urine Negative ng/mL (Cutoff=300); Phencyclidine Screen,Urine Negative ng/mL (Cutoff=25)
[2018-04-25] MEDS: Sucralfate 1 GM TABLET PO SCH (20:39)
[2018-04-26] MEDS: OXYCODONE Oral CONC 10 MG/0.5 ML ORAL.SYG SL PRN ×5 (00:19→19:02)
[2018-04-26] MEDS: 0.9 % Sodium Chloride 1,000 ML IVC SCH (04:29)
[2018-04-26 04:46] LABS: Basophils % 0.3 %; Eosinophils % 0.3 %; Hematocrit 37.9 % (35.3-44.9); Immature Granulocytes % 0.3 % (0-4); Lymphocytes # 2.8 K/mcL (0.6-4.6); Lymphocytes % 24.3 %; Mean Corpuscular HGB Conc 33.5 g/dL (31.6-35.5); Mean Corpuscular Hemoglobin 29.7 pg (28.0-33.3); Mean Corpuscular Volume 88.8 fL (83.0-100.0); Mean Platelet Volume 10.6 fL (9.4-12.4); Monocytes # 0.6 K/mcL (0.0-1.3); Monocytes % 5.3 %; Platelet Count 191 K/mcL (140-400); Red Blood Count 4.27 M/mcL (3.82-4.97); Red Cell Distribution Width 11.9 % (11.5-14.5); Segmented Neutrophils % 69.5 %
[2018-04-26 05:05] LABS: BUN/Creatinine Ratio 15 (6-26); Blood Urea Nitrogen 10 mg/dL (6-20); Calcium 9.2 mg/dL (8.6-10.3); Carbon Dioxide 20 mEq/L (23-29); Chloride 107 mEq/L (98-107); Glucose 110 mg/dL (70-105); Magnesium 2.1 mg/dL (1.6-2.6); Osmolality,Calculated 286 (280-300); Potassium 3.4 mEq/L (3.5-5.1); Sodium 138 mEq/L (136-145); eGFR For Non-African Americans > 60 (> 60)
[2018-04-26 05:17] LABS: Hemoglobin 12.7 g/dL (11.5-15.4)
[2018-04-26] MEDS: Sucralfate 1 GM TABLET PO SCH ×2 (08:33→21:27)
--- NOTE | 2018-04-26 08:54 | Internal Med Progress Note ---
Hospitalist Progress Note - Encounter Date of Encounter: 04/26/18 Time of Encounter: 08:49 - Subjective Interval History: See and examined at bedside today. Continues to have nausea. She notes that the zofran is making this worse and is requesting phenergan. - Exam Vitals: Temp Pulse Resp BP Pulse Ox 98.6 F 50 16 182/77 98 04/26/18 06:54 04/26/18 06:54 04/26/18 06:54 04/26/18 06:54 04/26/18 06:54 Exam: PHYSICAL EXAMINATION: GENERAL: NAD, A and O 3 HEENT: Head is normocephalic and atraumatic. Extraocular muscles are intact. Pupils are equal, round, and reactive to light and accommodation. NECK: Supple. No carotid bruits. No lymphadenopathy or thyromegaly. LUNGS: Clear to auscultation B/L AP and L. HEART: Regular rate and rhythm, S1, S2 without murmur. ABDOMEN: Soft, , and nondistended. NABS mild LUQ abdominal tenderness EXTREMITIES: Without any cyanosis, clubbing, rash, lesions or edema. NEUROLOGIC: Cranial nerves II through XII are grossly intact. PSYCHIATRIC: Agitated SKIN: No ulceration or induration present. - Assessment and Plan (1) Abdominal pain Current Visit: Yes Status: Acute Assessment and Plan: 1 patient has been experiencing left upper quadrant pain which is sharp and constant aggravated with eating. Patient states that she was tested for H. pylori in January and was positive we will continue with Protonix as well as Carafate We will give IV fluids due to poor oral intake Consult GI Nothing by mouth for possible EGD in a.m. Oxycodone sublingual for pain Zofran as needed for nausea Upon review of the records it appears the patient has had history of drug use however patient denies any recent drug use. She was taking Suboxone 2017 we will check a tox screen to make sure she is not withdrawing from drugs 04/26--abdominal pain persists, worse in LUQ. Patient is continuing to have nausea and vomiting. She does report that the Zofran makes the vomiting worse. I will discontinue this at this time. Continue promethazine. GI following and planning for EGD this a.m. (2) Nausea and vomiting Current Visit: Yes Status: Acute Assessment and Plan: as above (3) HTN (hypertension) Current Visit: Yes Status: Acute Assessment and Plan: HTN this a.m. has not had BP meds d/t NPO status for EGD this a.m Add PRN 10mg hyrdalazine IVP q6h monitor (4) DVT prophylaxis Current Visit: Yes Status: Acute Assessment and Plan: SCD'S - Time Spent with Patient Total time spent is greater than 50% in coordination of care (as documented) at patient's floor/unit and/or counseling patient: less than 15 minutes Plan of Care Discussed with: patient Internal Medicine: Result - Labs CBC & Chem 7: 04/26/18 04:19 04/26/18 04:19 Labs: Short CBC 04/25/18 04/26/18 Range/Units 10:30 04:19 WBC 12.1 H 11.4 H (4.3-11.1) K/mcL Hgb 15.2 12.7 D (11.5-15.4) g/dL Hct 44.1 37.9 (35.3-44.9) % Plt Count 228 191 (140-400) K/mcL Neutrophils # 9.6 H 8.0 (1.6-8.9) K/mcL BMP 04/25/18 04/26/18 10:30 04:19 Sodium 141 138 Potassium 3.8 3.4 L Chloride 104 107 Carbon Dioxide 20 L 20 L BUN 13 10 Creatinine 0.94 0.67 Glucose 99 110 H Calcium 10.8 H 9.2 Liver Function 04/25/18 Range/Units 10:30 Total Bilirubin 0.7 (0.3-1.0) mg/dL Direct Bilirubin 0.1 (0.0-0.2) mg/dL AST 15 (13-39) Units/L ALT 12 (7-52) Units/L Alkaline Phosphatase 67 (34-104) Units/L Albumin 4.9 (3.5-5.7) g/dL Urine 04/25/18 Range/Units 10:18 Urine Color Yellow (Yellow) Urine Clarity Clear (Clear) Urine pH 7.0 (5.0-8.0) pH Units Ur Specific [place] 1.009 L (1.010-1.025) Urine Protein Negative (Neg-Trace) mg/dL Urine Glucose (UA) Normal (Normal) mg/dL Consult Discharge Plan - Plan Referrals: Mahesh Harris MD [Partnered Physician] - (Your appointment has been requested. Our offices will call you with anappointment time and date.) (1) Abdominal pain Qualifiers: Abdominal location: left upper quadrant Qualified Code(s): R10.12 - Left upper quadrant pain (2) Nausea and vomiting Qualifiers: Vomiting type: unspecified Vomiting Intractability: intractable Qualified Code(s): R11.2 - Nausea with vomiting, unspecified (3) HTN (hypertension) Qualifiers: Hypertension type: essential hypertension Qualified Code(s): I10 - Essential (primary) hypertension
[2018-04-26] MEDS: *HR* Promethazine 25 MG/ML VIAL IVP PRN ×3 (10:59→22:36)
--- NOTE | 2018-04-26 11:43 | Gastroenterology Consult Note ---
<Gavin Lopes - Last Filed: 04/26/18 11:30> Date of Encounter: 04/26/18 Time of Encounter: 10:00 - Assessment and plan (1) Nausea and vomiting Current Visit: Yes Status: Acute Assessment and plan: Continue anti-emetics and PPI. Recommend avoiding marijuana. Plan for EGD today to r/o esophagitis, gastritis, duodenitis, PUD, MW tear, or AVM. Keep patient NPO. Qualifiers: Vomiting type: unspecified Vomiting Intractability: intractable Qualified Code(s): R11.2 - Nausea with vomiting, unspecified (2) Abdominal pain Current Visit: Yes Status: Acute Assessment and plan: Plan for EGD today to r/o esophagitis, gastritis, duodenitis, PUD, MW tear, or AVM. Keep patient NPO. Continue PPI. Plan for colonoscopy as outpatient. Patient educated regarding lifestyle modifications including: (1) avoidance of foods that may precipitate reflux (eg, coffee, alcohol, chocolate, fatty foods). (2) avoidance of acidic foods that may precipitate heartburn (eg, citrus, carbonated drinks, spicy foods). (3) adoption of behaviors that may reduce esophageal acid exposure (see weight loss, smoking cessation, raising the head of the bed, and avoiding recumbency for 2-3 hours after meals). Qualifiers: Abdominal location: left upper quadrant Qualified Code(s): R10.12 - Left upper quadrant pain - Time Spent With Patient Total time spent is greater than 50% in coordination of care (as documented) at patient's floor/unit and/or counseling patient: GI History of Present Illness - Data of Consult Patient: new to practice Consult date: 04/26/18 Requesting Physician: Neal Gaming - Consult Narrative Reason for consult: Abdominal pain, N/V History of present illness: Ms. Arias is a 48 year old female with PMHx of HTN, H. pylori (per patient report), with complaints of nausea/vomiting and LUQ pain. She states the pain and the nausea/vomiting started in January when she was diagnosed with Hpylori. She states she was treated with antibiotics, Prilosec, and Carafate. Nausea and vomiting improved, but worsened over the past 5 days. She states her LUQ pain has worsened over the past week, despite taking the Prilosec. She denies any drug use, including marijuana, but her drug screen was positive for benzodiazepines and marijuana. She has never had EGD or colonoscopy. Procedures: None NSAIDs: None Anticoagulation: None Past Med Surg Social Fam HX - Past Medical History Medical history: hypertension Additional medical history: pancreatitis Psychiatric history: anxiety, depression - Social History Smoking Status: Never smoker Smokeless Tobacco Status: No Alcohol use: none Drug use: none - Family History Mother Living Status: Still Living Hx Family Cancer: Yes (skin cancer) Father Living Status: Still Living Hx Family Cardiac Disorders: Yes (HTN HLP) - Gastrointestinal Gastrointestinal: Present: as per HPI - Constitutional Constitutional: as per HPI - EENT Eyes: as per HPI Ears: Present: as per HPI Nose, mouth and throat: Present: as per HPI - Cardiovascular Cardiovascular ROS: Present: as per HPI - Respiratory Respiratory IM: Present: as per HPI - Genitourinary Genitourinary: Absent: change in color, Urinary frequency - Neurological ROS Neurological GI: Present: as per HPI - Hematologic/Lymphatic Hematologic/Lymphatic pediatric: Present: as per HPI - Musculoskeletal Musculoskeletal ROS GI: Present: as per HPI - Integumentary Integumentary GI: Present: as per HPI - Psychiatric ROS Psychiatric GI: Present: as per HPI - Endocrine Endocrine IM: Present: as per HPI - Constitutional Vitals: Temp Pulse Resp BP Pulse Ox 98.6 F 50 16 182/77 98 04/26/18 06:54 04/26/18 06:54 04/26/18 06:54 04/26/18 06:54 04/26/18 06:54 General appearance: Present: cooperative, A&O X 3, no acute distress, answers questions appropriately - Head Head exam: Present: atraumatic, normocephalic - Eye Eye exam: Present: normal appearance, sclera anicteric - ENT ENT exam: Present: mucous membranes moist - Neck Neck exam general surgery: Present: normal inspection, trachea midline - Respiratory Respiratory exam: Present: CTAB. Absent: rales, rhonchi - Cardiovascular Cardiovascular exam: Present: RRR, +S1, +S2 - GI/Abdominal GI/Abdominal exam: Present: soft, tenderness (Epigastric, LUQ), no peritoneal signs. Absent: distended, firm, guarding - Rectal Rectal exam: Present: deferred - Extremities Exam Extremities exam: Present: warm - Neurological Exam Neurological exam: Present: no focal deficits - Psychiatric Psychiatric exam: Present: normal affect, normal mood - Skin Skin exam: Present: dry, intact, normal color, warm Results - Labs CBC & Chem 7: 04/26/18 04:19 04/26/18 04:19 Labs: Last Result Calcium 9.2 mg/dL (8.6-10.3) 04/26/18 04:19 Urine Opiates Screen Negative ng/mL (Efqycs=348) 04/25/18 15:00 Entire Visit Hgb 12.7 g/dL (11.5-15.4) D 04/26/18 04:19 Hct 37.9 % (35.3-44.9) 04/26/18 04:19 Total Bilirubin 0.7 mg/dL (0.3-1.0) 04/25/18 10:30 AST 15 Units/L (13-39) 04/25/18 10:30 ALT 12 Units/L (7-52) 04/25/18 10:30 Lipase 48 Units/L (11-82) 04/25/18 10:30 Consult Discharge Plan - Plan Referrals: Mahesh Harris MD [Partnered Physician] - (Your appointment has been requested. Our offices will call you with anappointment time and date.) <Gonsalo Styles - Last Filed: 04/26/18 16:58> Date of Encounter: 04/26/18 Time of Encounter: 13:00 - Time Spent With Patient Total time spent is greater than 50% in coordination of care (as documented) at patient's floor/unit and/or counseling patient: GI History of Present Illness - Data of Consult Requesting Physician: Neal Gaming - Consult Narrative History of present illness: Ms. Arias is a 48 year old female - Constitutional Vitals: Temp Pulse Resp BP Pulse Ox 99.1 F 72 18 125/73 97 04/26/18 16:35 04/26/18 16:35 04/26/18 16:35 04/26/18 16:35 04/26/18 16:35 Results - Labs CBC & Chem 7: 04/26/18 04:19 04/26/18 04:19 Labs: Last Result Calcium 9.2 mg/dL (8.6-10.3) 04/26/18 04:19 Urine Opiates Screen Negative ng/mL (Xbwtqy=038) 04/25/18 15:00 Entire Visit Hgb 12.7 g/dL (11.5-15.4) D 04/26/18 04:19 Hct 37.9 % (35.3-44.9) 04/26/18 04:19 Total Bilirubin 0.7 mg/dL (0.3-1.0) 04/25/18 10:30 AST 15 Units/L (13-39) 04/25/18 10:30 ALT 12 Units/L (7-52) 04/25/18 10:30 Lipase 48 Units/L (11-82) 04/25/18 10:30 - Attending Attestation I have personally performed a face to face evaluation on this patient. I have r eviewed and agree with the care plan. History and Exam by me shows: Patient seen patient with left-sided abdominal pain along with the intractable nausea and vomiting. CT of the abdomen has been negative. Does complain of pain in the left side along with pain in her upper back. On examination: Has tenderness in the left upper abdomen. Assessment patient with intractable nausea and vomiting left-sided abdominal pain recommendation EGD to rule out gastric/esophageal etiology for her symptoms.
[2018-04-26] MEDS: Pantoprazole 40 MG VIAL IVP SCH (11:55)
[2018-04-26] MEDS ORDERED: *HR* Propofol 200 MG/20 ML VIAL IVP ONE (12:28)
[2018-04-26] MEDS ORDERED: Lidocaine -MPF 2% 2 ML VIAL ONE (12:28)
--- NOTE | 2018-04-26 12:32 | Anesthesia Evaluation PreOp ---
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: Denies Any Significant HX Other Medical History: Thyroid, Other (Anxiety Depression) Alcohol Use: none Drug use: none Medications and Allergies Losartan Potassium 50 mg PO DAILY 04/25/18 [History] Omeprazole [PriLOSEC] 40 mg PO DAILY 04/25/18 [History] Ondansetron [Zofran] 8 mg PO Q8H PRN 04/25/18 [History] Sucralfate [Carafate] 1 gm PO BID 04/25/18 [History] Allergy/AdvReac Type Severity Reaction Status Date / Time NSAIDS (Non-Steroidal AdvReac Nausea Verified 04/23/18 19:44 Anti-Inflamma prednisone AdvReac See Verified 04/23/18 19:44 Comments - Meds/Allergy Pre-op Review Medications Reviewed: Yes Allergies Reviewed: Yes Beta Blockers on Current Med List: No Anesthesia Results - Labs 04/26/18 04:19 04/26/18 04:19 Anesthesia Exam Vital Signs/O2 Sat/Glucose, Most Current Temp Pulse Resp BP Pulse Ox 04/26/18 12:03 99.2 F 61 16 182/96 98 Height: 5'3 Weight: 132 lbs NPO (# of Hours): MN Pain Scale: 0 - HEENT Pupil (Motor): Pupils equal, EOMI Mallampati: II Oral Opening: Greater than 3 - [employer]ING SUPER[employer]OR LOC: Oriented [employer]ING SUPER[employer]OR Motor: Normal RUE, Normal LUE, Normal RLE, Normal LLE, Normal Face [employer]PER[employer]OR Sensory: Normal: RUE, LUE, RLE, LLE, Face - Cardiac Rhythm: Regular Murmur: None JVD: No Carotid Bruit: No - Pulmonary Breath Sounds: bilateral Clear Respiratory Effort: Symmetrical Anesthesia Assess/Plan ASA Score: 2 Level of consciousness: Cooperative Anesthetic Plan: MAC Autologous Blood: No Monitoring Plan: Standard Monitors Recovery Plan: Other (Discussed MAC, agrees to proceed)
--- NOTE | 2018-04-26 13:25 | Anesthesia Evaluation Post Op ---
Date of Encounter: 04/26/18 Time of Encounter: 13:15 - Vital Signs Vital Signs: Vital Signs/O2 Sat/Glucose, Most Current Temp Pulse Resp BP Pulse Ox 04/26/18 12:31 99.5 F 85 16 146/61 97 04/26/18 12:03 99.2 F 61 16 182/96 98 - Lungs Lungs: Clear Ascult./Percussion - Airway Airway: Non-obstructed - Cardiovascular Regular Rate - Mental Status Mental Status: Alert & Oriented, Answers Appropriately - Pain Pain Scale: 0 - Nausea Vomiting Nausea Vomiting: Not Present - Hydration Hydration: NPO - Discharge PostOp Status: Transfer Patient to floor
[2018-04-27] MEDS: OXYCODONE Oral CONC 10 MG/0.5 ML ORAL.SYG SL PRN ×2 (00:03→04:58)
[2018-04-27] MEDS ORDERED: 0.9 % Sodium Chloride 1,000 ML IVC SCH (03:15)
[2018-04-27 07:22] VITALS: BP 170/83
[2018-04-27] MEDS: Sucralfate 1 GM TABLET PO SCH (09:56)
[2018-04-27] MEDS: Pantoprazole 40 MG VIAL IVP SCH (09:57)
--- NOTE | 2018-04-27 10:41 | Discharge Summary ---
- NOTES TO OUTPATIENT PROVIDER Notes to Outpatient Provider: Basic discharge follow-up. Please follow-up with PCP within 1 week of discharge. Continue follow-up with GI as scheduled. Orders not resulted at time of discharge: Pending orders 04/26/18 12:47 Surgical Pathology [PTH] Routine Date of Encounter: 04/27/18 Time of Encounter: 10:34 - Discharge Diagnosis (1) Abdominal pain Priority: Primary Status: Acute Qualifiers: Abdominal location: left upper quadrant Qualified Code(s): R10.12 - Left upper quadrant pain (2) Nausea and vomiting Priority: Secondary Status: Resolved Qualifiers: Vomiting type: unspecified Vomiting Intractability: intractable Qualified Code(s): R11.2 - Nausea with vomiting, unspecified (3) HTN (hypertension) Priority: Secondary Status: Acute Qualifiers: Hypertension type: essential hypertension Qualified Code(s): I10 - Essential (primary) hypertension (4) DVT prophylaxis Priority: Secondary Status: Acute Hospital course: Ms. Arias is a 48 year old female who presented with abdominal pain and nausea and vomiting. Recent diagnosis by her PCP for H. pylori. Underwent EGD yesterday afternoon with findings of hiatal hernia and gastritis. Gastric biopsies sent and pending. I believe that marijuana maybe partially playing into nausea and vomiting with cyclical vomiting syndrome. However, continue to follow pending biopsy results she also may have H. pylori. On day of discharge the patient has been able to tolerate a bland full liquid diet. She has been instructed to slowly introduce solid foods into her diet. She is instructed to follow up with GI as scheduled. She should follow up with her PCP with only to discharge. Additionally, she is instructed to curb her marijuana use. She is being sent home with prescriptions for sublingual Zofran and Bentyl. Discharge discussed with: patient, nurse, weight loss sales consultant - Time Spent with Patient Total time spent providing and/or coordinating discharge services: Less than 30 minutes - Discharge Medications Home Medications: Losartan Potassium 50 mg PO DAILY 04/25/18 [History] Omeprazole [PriLOSEC] 40 mg PO DAILY 04/25/18 [History] Sucralfate [Carafate] 1 gm PO BID 04/25/18 [History] Dicyclomine [Bentyl] 10 mg PO QID PRN 15 Days #60 capsule 04/27/18 [Rx] Ondansetron ODT [Zofran ODT] 4 mg SL Q8HR 14 Days #42 tab.rapdis 04/27/18 [Rx] Allergies/Adverse Reactions: Allergy/AdvReac Type Severity Reaction Status Date / Time NSAIDS (Non-Steroidal AdvReac Nausea Verified 04/23/18 19:44 Anti-Inflamma prednisone AdvReac See Verified 04/23/18 19:44 Comments Date of admission: 04/25/18 12:38 Primary care physician: PCP NONE Consults: 04/25/18 15:14 Consult to Gastroenterology [CONS] Routine Consulting Provider: Gastroenterology [facility] Reason for Consult: ABD pain Time Notified: 15:15 Call Completed: Yes Discharging clinician: Neal Gaming Anticipated date of discharge: 04/27/18 - Constitutional Vitals: Temp Pulse Resp BP Pulse Ox 98.9 F 60 19 170/83 100 04/27/18 07:21 04/27/18 07:21 04/27/18 07:21 04/27/18 07:21 04/27/18 07:21 General appearance: Present: A&O X 3 Exam: PHYSICAL EXAMINATION: GENERAL: NAD, A and O 3 HEENT: Head is normocephalic and atraumatic. Extraocular muscles are intact. PERRLA NECK: Supple. No carotid bruits. No lymphadenopathy or thyromegaly. LUNGS: Clear to auscultation B/L AP and L. HEART: Regular rate and rhythm, S1, S2 without murmur. ABDOMEN: Soft, , and nondistended. NABS mild LUQ abdominal tenderness EXTREMITIES: Without any cyanosis, clubbing, rash, lesions or edema. NEUROLOGIC: Cranial nerves II through XII are grossly intact. PSYCHIATRIC: Agitated SKIN: No ulceration or induration present. - Patient Status Disposition: Home, Self-Care Condition: Fair Functional capacity at discharge: independent ambulation Overall status at discharge: patient is progressing back to baseline - Discharge Instructions Follow Up With: Mahesh Harris MD [Partnered Physician] - (Your appointment has been requested. Our offices will call you with anappointment time and date.) Forms: ED Satisfaction Letter - Diet and Activity Activity: increase activity as tolerated, resume usual activities as tolerated Diet: other (Liquid diet, and reduce solid foods as tolerated slowly)
--- NOTE | 2018-04-27 14:27 | Electrocardiograph Report ---
[address] [address] Test Date: 2018-04-25 Pat Name: Tanya Arias Department: EXAM2 Room: 3B24 Gender: Online Merchant: : 1970 Requested By: Ellen Ibrahim Order Number: [id number] Reading MD: Doug Seth Measurements Intervals [place] Rate: 52 P: 66 CA: 143 QRS: 24 QRSD: 99 T: 42 QT: 464 QTc: 432 Interpretive Statements Sinus rhythm Electronically Signed On 04-27-2018 14:25:58 EST by Doug Seth
== END 2018-04-27 12:10 | disposition home or self-care (01) ==
LOC: 3BNU 09:48 → EMEROOARM 09:48 → SUATTDRO 12:38 → 3BNU 14:23
PROVIDERS: ADMIT Hospitalist; ATTEND Nurse Practitioner
PROC: ENDOEBX (2018-04-26 14:30)